=== PATIENT | male | born 1985 | race Two or more races ===

== ENCOUNTER 2024-02-22 16:10 | Emergency (ER) | payer OTHER, SELFPAY ==
--- NOTE | ~2024-02-22 | CT_ITS ---
EXAMINATION: CT abdomen pelvis w con DATE: 02/22/2024 18:41 INDICATION: RLQ pain TECHNIQUE: Computed tomography (CT) of the abdomen and pelvis was performed with 100 mL Omnipaque-350 intravenous contrast. Automated exposure control and iterative reconstruction technique were employe d. The dose-length product was 735.37 mGy-cm. COMPARISON: None. FINDINGS: Lower thorax: Unremarkable Liver: 2.4 cm left lobe cyst. Multiple additional hypodensities that are too small to characterize bu t likely represent cysts or hemangiomas. Biliary/Gallbladder: Gallbladder is normal. No bile duct dilation. Pancreas: No mass or duct dilation. Spleen: Normal. Adrenals:No mass. Kidneys: No suspicious mass, obstructing stone, or hydronephrosis. Multiple bilateral subcentimeter h ypodensities that are too small to characterize but most likely represent cysts. GI tract: Mild distal esophageal and gastric wall edema. No small or large bowel dilation. Normal giana endix. Mesentery/Peritoneum: No ascites, mass, or free air. Retroperitoneum: No mass. Pelvis: Pelvic organs are within normal limits. Soft Tissues: Soft tissues and body wall unremarkable. Bones: No acute osseous finding. Partially visualized, uncomplicated appearing right hip arthroplast y hardware IMPRESSION: Mild esophagitis/gastritis. Otherwise, no acute abdominopelvic process detected. Reviewed, dictated and finalized at location K.
[2024-02-22 16:14] VITALS: BP 132/68; PULSE 67; RESP 20; TEMP 36.2; O2SAT 100
[2024-02-22 17:07] VITALS: BP 123/70; PULSE 57; RESP 14; O2SAT 100
[2024-02-22 17:24] LABS: Basophils Absolute Auto 0.1 K/mm3 (0.0-0.1); Basophils Percent Auto 0.8 % (0.2-1.2); Eosinophils Absolute Auto 0.4 K/mm3 (0-0.3); Eosinophils Percent Auto 6.4 % (0-4.4); Hematocrit 41.7 % (42.0-52.0); Immature Granulocyte Absolute 0.01 K/mm3 (0.00-0.031); Immature Granulocyte Percent A 0.2 % (0-0.5); Lymphocytes Absolute Auto 2.17 K/mm3 (0.9-3.2); Lymphocytes Percent Auto 35.4 % (18.3-44.2); Mean Corpuscular HGB Conc 33.6 g/dl (32-36); Mean Corpuscular Hemoglobin 26.9 pg (26-34); Mean Corpuscular Volume 80.2 fl (80-100); Mean Platelet Volume 10.1 fl (7.4-10.4); Monocytes Absolute Auto 0.5 K/mm3 (0.1-0.6); Neutrophils Percent Auto 49.2 % (45.5-73.1); Platelet Count Result 214 k/mm3 (150-375); Red Cell Distribution Width 12.7 % (11.5-14.5); White Blood Count 6.1 K/mm3 (4.5-10.0)
[2024-02-22 17:35] LABS: Alanine Aminotransferase 23 U/L (6-50); Albumin Level 4.5 g/dL (3.5-5.1); Alkaline Phosphatase 69 U/L (38-126); Anion Gap 9 mmol/L (4-12); Aspartate Amino Transferase 34 U/L (17-59); Bilirubin,Total 0.7 mg/dL (0.2-1.3); Blood Urea Nitrogen 13 mg/dL (9-20); Calcium 9.3 mg/dL (8.4-10.2); Carbon Dioxide 27 mmol/L (22-30); Chloride 103 mmol/L (98-107); Estimated CRCL calculation 95 ml/min; Estimated Glomerular Filt Rate > 60; Glucose 87 mg/dL (65-110); Lipase 144 U/L (23-300); Potassium 4.1 mmol/L (3.4-5.0); Sodium 139 mmol/L (137-145)
[2024-02-22 17:38] LABS: Appearance Urine Clear (Clear); Bacteria Urine None Seen /hpf; Bilirubin Urine Negative (Negative); Blood Urine Negative (Negative); Color Urine Yellow (Yellow); Glucose Urine UA Negative (Negative); Ketones Urine Negative (Negative); Leukocyte Esterase Ur Trace LEU/UL (Negative); Nitrate Urine Negative (Negative); Non Pathogenic Casts 0-2; Protein Urine Negative (Negative); RBC Urine 0-2 /hpf (0-2); Specific Grav Ur 1.017 (1.001-1.035); Squamous Epithelial Cell Urine None Seen /hpf (Few); WBC Urine 0-5 /hpf (0-3)
[2024-02-22 17:39] LABS: Add Urine Microscopic? YES
--- NOTE | 2024-02-22 18:06 | ED.ABDPAIN ---
HPI - Abdominal Pain General Chief Complaint: Abdominal Pain Stated Complaint: R sided lower abd/groin pain Time Seen by Provider: 02/22/24 17:13 Source: patient Mode of arrival: ambulatory Limitations: no limitations History of Present Illness HPI narrative: This is a 38-year-old male that presents to the emergency department for right lower quadrant abdominal pain. Ongoing over the last week. Reports he was evaluated at [facility] for this 3 days ago. Told his appendix was inflamed, but was discharged to possibly follow up with surgery outpatient. He has had continued pain which prompted be seen today. Denies fevers, vomiting, diarrhea. Related Data Allergies Allergy/AdvReac Type Severity Reaction Status Date / Time No Known Allergies Allergy Verified 02/22/24 16:15 Review of Systems Review of Systems: CONSTITUTIONAL: Denies fever GASTROINTESTINAL: Reports abdominal pain. Denies nausea, vomiting, or diarrhea. GENITOURINARY: Denies dysuria All systems reviewed & are unremarkable except as noted in HPI and below PMFSH Past Medical History Medical History (Updated 02/22/24 @ 20:09 by Sheila Finley PA-C) No active medical problems Social History Social History (Updated 02/22/24 @ 18:12 by Sheila Finley PA-C) Substance use: never Exam Narrative: GENERAL: Well-appearing, well-nourished, and in no acute distress. HEAD: Normocephalic, atraumatic. EYES: EOMI. CHEST: Clear to auscultation. No respiratory distress. No wheezes rales or rhonchi HEART: Regular rate and rhythm. No murmur heard. Normal peripheral pulses. ABDOMEN: Soft, nondistended, normal active bowel sounds. Mild tenderness to palpation in the right lower quadrant EXTREMITIES: Normal range of motion. No edema. SKIN: Warm, dry, no rash. NEURO: No focal deficits. Alert and oriented x3. PSYCH: Normal mood and affect Course Course Emergency Course: Patient updated on his workup and agrees with plan of care Vital Signs Vital signs: Vital Signs Temperature 97.2 F L 02/22/24 16:14 Pulse Rate 67 02/22/24 16:14 Respiratory Rate 20 02/22/24 16:14 Blood Pressure 132/68 02/22/24 16:14 Pulse Oximetry 100 02/22/24 16:14 Temperature 97.2 F L 02/22/24 16:14 Pulse Rate 62 02/22/24 19:01 Respiratory Rate 18 02/22/24 19:01 Blood Pressure 110/59 L 02/22/24 19:01 Pulse Oximetry 100 02/22/24 19:01 MDM - Abdominal Pain MDM Narrative Medical decision making narrative: Patient presents to the emergency department for right lower quadrant abdominal pain. Reports he was seen in another facility 3 days ago[address] Had a [address] scan that showed possible appendicitis as well as colitis. He has had continued pain which prompted him to be seen. He is afebrile and nontoxic appearing. His vitals are stable. Cbc without leukocytosis. Metabolic panel and lipase without concerning findings. Urine without evidence of infection. CT abdomen pelvis today shows mild esophagitis/gastritis. Otherwise no acute findings. Patient was updated on his workup. He has been on oral antibiotics prescribed by outside hospital. Possibly treating early appendicitis? Patient instructed to continue his antibiotics as prescribed. Follow up with primary care provider. He was given warnings to return to the ER Differential Diagnosis Differential diagnosis: Likely acute appendicitis, calculus of kidney, constipation and diverticulitis Medical Records Attestation: I reviewed the patient's medical records. Medical records narrative: Patient was able to show me his CT imaging results from outside hospital which showed possible early acute appendicitis and possible colitis Lab Data Attestation: I reviewed the patient's lab results. 02/22/24 17:16 02/22/24 17:16 Labs: Lab Results 02/22/24 02/22/24 Range/Units 17:16 17:26 WBC 6.1 (4.5-10.0) K/mm3 RBC 5.20 (4.6-6.20) M/mm3 Hgb 14.0 (14.0-18.0) g/dL
[2024-02-22 19:01] VITALS: BP 110/59; PULSE 62; RESP 18; O2SAT 100
== END 2024-02-22 20:32 | disposition home or self-care (01) ==
PROVIDERS: Emergency Medicine; Emergency Provider Physician Assistant; PCP Physician Assistant
DX: R10.31 Right lower quadrant pain (principal)
CPT/HCPCS: 36415; 74177; 80053; 81001; 83690; 85025; 99284; Q9967

== ENCOUNTER 2024-06-11 09:59 | Emergency (ER) | payer OTHER, SELFPAY ==
[2024-06-11 10:07] VITALS: BP 153/74; PULSE 58; RESP 17; TEMP 36.7; O2SAT 97
--- NOTE | 2024-06-11 10:17 | ED.GENADULT ---
HPI - General Adult General Chief complaint: Urogenital-Male Stated complaint: UTI Time Seen by Provider: 06/11/24 10:02 History of Present Illness HPI narrative: 38-year-old male present to the emergency department for evaluation for urinary symptoms. patient states he did have unprotected sex on 05/06 and having some burning with urination since then. Patient denies any urinary discharge. Patient also was describing some right flank pain. patient states he does have chronic back pain. Related Data Allergies Allergy/AdvReac Type Severity Reaction Status Date / Time No Known Allergies Allergy Verified 06/11/24 10:06 Review of Systems Review of Systems: All systems reviewed & are unremarkable except as noted in HPI and below PMFSH Past Medical History Medical History (Updated 06/11/24 @ 12:55 by Chilo Pulido MD) No active medical problems Social History Social History (Updated 02/22/24 @ 18:12 by Sheila Finley PA-C) Substance use: never Exam Narrative: APPEARANCE: Well appearing, no pain, no distress, well-nourished. HEAD: normocephalic, atraumatic. EYES: PERRLA/EOMI, conjunctivae clear. NOSE: Normal no drainage EARS:TMS clear with good light reflex. THROAT: Pharynx clear, no exudate. NECK: Supple. No adenopathy, no masses. RESPIRATORY: Airway patent, respirations nonlabored. Clear to auscultation bilaterally, no rales, rhonchi, wheezing. CARDIOVASCULAR: Regular rate and rhythm without murmurs rubs or gallops. ABDOMINAL: right flank tenderness to palpation MUSCULOSKELETAL: Moves all extremities. Strength/ROM intact, No edema, No calf tenderness. NEURO: Alert. Cranial nerves II through XII intact. Grossly intact SKIN: Warm, dry. Normal Color Course Vital Signs Vital signs: Vital Signs Temperature 98.1 F 06/11/24 10:07 Pulse Rate 58 L 06/11/24 10:07 Respiratory Rate 17 06/11/24 10:07 Blood Pressure 153/74 H 06/11/24 10:07 Pulse Oximetry 97 06/11/24 10:07 Temperature 98.3 F 06/11/24 13:20 Pulse Rate 62 06/11/24 13:20 Respiratory Rate 16 06/11/24 13:20 Blood Pressure 138/72 06/11/24 13:20 Pulse Oximetry 99 06/11/24 13:20 Medical Decision Making MDM Narrative Medical decision making narrative: 38-year-old male presents to the emergency department for evaluation for urinary symptoms. Patient has no abnormalities on his urinary analysis. Patient was negative for Trichomonas gonorrhea and chlamydia. Patient denies any urinary symptoms. patient and family are updated on the results of the workup. All questions concerns were addressed. Differential Diagnosis Differential Diagnosis: Urethritis, STI, kidney stone, muscular injury, gonorrhea, chlamydia, Trichomonas Vital Signs Vital Signs: Vital Signs Temperature 98.1 F 06/11/24 10:07 Pulse Rate 58 L 06/11/24 10:07 Respiratory Rate 17 06/11/24 10:07 Blood Pressure 153/74 H 06/11/24 10:07 Pulse Oximetry 97 06/11/24 10:07 Temperature 98.3 F 06/11/24 13:20 Pulse Rate 62 06/11/24 13:20 Respiratory Rate 16 06/11/24 13:20 Blood Pressure 138/72 06/11/24 13:20 Pulse Oximetry 99 06/11/24 13:20 Lab Data Lab results reviewed: Yes I reviewed the patient's lab results. Labs: Lab Results 06/11/24 Range/Units 10:09 Urine Color Yellow (Yellow) Urine Appearance Clear (Clear) Urine pH 7.5 (5.0-9.0) Ur Specific [place] 1.021 (1.001-1.035) Urine Protein Negative (Negative) mg/dL Urine Glucose (UA) Negative (Negative) mg/dL Urine Ketones Negative (Negative) mg/dL Ur Blood (Man) Negative (Negative) Urine Nitrate Negative (Negative) Urine Bilirubin Negative (Negative) Urine Urobilinogen 1.0 (<2.0) mg/dL Leukocyte Esterase Rfl Negative (Negative) NIKHIL/UL C. trachomatis (PCR) Not detected (NOT DETECTE) N. gonorrhoeae (PCR) Not detected (NOT DETECTE) T. vaginalis (PCR) Not detected (NOT DETECTE) Discharge Plan Discharge Clinical Impression: Lower urinary tract symptoms, Acute right flank pain Patient Disposition: Home, Self-Care Condition: Stable Instructions: Antibiotic Form Additional Instructions: Tylenol and ibuprofen for pain control. Have close follow-up with your primary care physician. If you have any worsening symptoms then please call or return to the emergency department. Follow-up/Referrals: Gayle,MOHSEN Warren [Primary Care Provider] -
[2024-06-11 10:26] LABS: Add Urine Microscopic? NO; Appearance Urine Clear (Clear); Bilirubin Urine Negative (Negative); Blood Urine Negative (Negative); Color Urine Yellow (Yellow); Glucose Urine UA Negative (Negative); Ketones Urine Negative (Negative); Leukocyte Esterase Ur Negative LEU/UL (Negative); Nitrate Urine Negative (Negative); Protein Urine Negative (Negative); Specific Grav Ur 1.021 (1.001-1.035); pH Urine 7.5 (5.0-9.0)
[2024-06-11 12:19] LABS: Trichomonas Vag PCR NOT DETECTED (NOT DETECTE)
[2024-06-11 12:43] LABS: Chlamydia trachomatis NOT DETECTED (NOT DETECTE); Neisseria gonorrhoeae PCR NOT DETECTED (NOT DETECTE)
[2024-06-11 13:20] VITALS: BP 138/72; PULSE 62; RESP 16; TEMP 36.8; O2SAT 99
== END 2024-06-11 13:20 | disposition home or self-care (01) ==
PROVIDERS: Emergency Provider Emergency Medicine; PCP Physician Assistant
DX: R30.0 Dysuria (principal); R10.9 Unspecified abdominal pain
CPT/HCPCS: 81003; 87491; 87591; 87661; 99283